=== PATIENT | female | born 1970 | race Caucasian/White ===

== ENCOUNTER → 2023-08-28 12:30 | Outpatient (REF) | payer BC, SELFPAY | LOC: WDC 12:30 | PROVIDERS: ATTENDING PHYSICIAN Obstetrics & Gynecology; FAMILY PHYSICIAN Family Medicine | DX: Z12.31 Encounter for screening mammogram for malignant neoplasm of breast (principal) | CPT/HCPCS: 77063; 77067 ==

== ENCOUNTER → 2024-03-15 10:48 | Outpatient (REF) | payer BC, SELFPAY | LOC: HWRAD 10:48 | PROVIDERS: ATTENDING PHYSICIAN Family Medicine | DX: R74.8 Abnormal levels of other serum enzymes (principal) | CPT/HCPCS: 76700 ==

== ENCOUNTER → 2024-09-18 11:37 | Outpatient (REF) | payer BC, SELFPAY | LOC: WDC 11:37 | PROVIDERS: ATTENDING PHYSICIAN Obstetrics & Gynecology; FAMILY PHYSICIAN Family Medicine | DX: Z12.31 Encounter for screening mammogram for malignant neoplasm of breast (principal) | CPT/HCPCS: 77063; 77067 ==

== ENCOUNTER 2024-10-02 09:36 | Emergency (ER) | payer BC, SELFPAY ==
[2024-10-02 09:37] VITALS: BP 141/92
[2024-10-02 10:06] LABS: % Basophils 0.7 % (0-2); % Eosinophils 1.4 % (0-6); % Immature Granulocytes 0.1 % (0-0.5); % Lymphocytes 16.5 % (20.5-51.1); % Monocytes 7.8 % (1.7-9.3); % Neutrophils 73.5 % (42.2-75.2); Absolute Basophils 0.1 10^3/uL (0-0.2); Absolute Eosinophils 0.1 10^3/uL (0-0.7); Absolute Lymphocytes 1.2 10^3/uL (1.2-3.4); Absolute Monocytes 0.6 10^3/uL (0.1-0.6); Absolute Neutrophils 5.3 10^3/uL (1.4-6.5); Hematocrit 42.9 % (37.0-47.0); Hemoglobin 13.7 g/dL (12.0-16.0); Mean Corp Hgb Conc. 31.9 g/dL (33.0-37.0); Mean Corpuscular Volume 87.6 fL (81.0-99.0); Mean Platelet Volume 10.5 fL (7.4-10.4); Nucleated Red Blood Cells % 0 %; Platelet Count 224 10^3/uL (130-400); White Blood Cell Count 7.2 10^3/uL (4.8-10.8)
[2024-10-02 10:21] LABS: PT 28.6 Sec (11.4-14.6)
[2024-10-02 10:22] LABS: ALT (SGPT) 42 U/L (0-35); AST (SGOT) 44 U/L (14-36); Albumin 4.1 g/dl (3.5-5.0); Alkaline Phosphatase 150 U/L (38-126); Blood Urea Nitrogen 10 mg/dl (7-17); Calcium 9.4 mg/dl (8.4-10.2); Carbon Dioxide 32 mmol/L (22-30); Chloride 103 mmol/L (98-107); Glucose 115 mg/dl (70-99); Potassium 4.8 mmol/L (3.5-5.1); Sodium 142 mmol/L (135-145); Total Bilirubin 0.8 mg/dl (0.2-1.3); eGFR > 60.00
[2024-10-02 10:32] LABS: NT-proBNP 412 pg/ml; Troponin I < 0.012 ng/ml
[2024-10-02 11:12] VITALS: BP 140/99
--- NOTE | 2024-10-02 11:27 | ED.GENMED ---
History of Present Illness
General
Chief Complaint: Cardiac Symptoms
Time Seen by Provider: 10/02/24 11:27
History of Present Illness
History of Present Illness:
TIME OF INITIAL ENCOUNTER:
HPI: Recently, the patient's pressure tank operator at [facility] wanted her to decrease her spironolactone dosing from 50 mg 3 times a day to once a day. She then developed swelling and shortness of breath. She decided to go back on 3 times per day dosing.
The patient had mitral valve replacement with mechanical valve nearly 20 years ago at [facility]. She was also here for Tikosyn loading but is no longer on Tikosyn.
EXAM:
GENERAL: Well appearing in no distress
HEENT: Moist oral mucosa
CARDIOVASCULAR: No murmurs, normal heart rate, regular rhythm, No chest wall tenderness, subtle click heard
PULMONARY: No respiratory distress, breath sounds are clear and equal
ABDOMEN: Soft with no peritoneal signs, no tenderness
NEUROLOGIC: Excellent strength all extremities, no coordination deficits
PSYCHIATRIC: Appropriate mental status, normal insight and judgement
EXTREMITIES: Nontender, no edema, moves all extremities equally
SKIN: No rash, no lesions
BACK: Surgical scar noted in the midline
NUMBER AND COMPLEXITY OF PROBLEMS ADDRESSED AT THE ENCOUNTER
� Chronic conditions affecting care: Mitral valve disease, paroxysmal A-fib/flutter
� Acute Exacerbation and/or Progression of Chronic Illness: This is an acute problem
� Differential Diagnosis includes: Valvular disease, CHF, medication change
AMOUNT AND/OR COMPLEXITY OF DATA TO BE REVIEWED AND ANALYZED
� I performed an independent evaluation of and my interpretation is:
EKG: Sinus 64, normal axis, no acute ST abnormality
CT:
X-rays: Chest x-ray shows no evidence of heart failure
Laboratory Studies: CBC normal, INR 2.7 troponin less than 0.012, BNP 412 with no old to compare
Other:
� Review of other/old records: The patient had a Holter monitor August 2015 that showed rate controlled atrial flutter
� Clinical information was obtained by an independent historian: None needed
� Prescriptions/Medications Considered but not given:
� Further testing considered but not performed:
RISK OF COMPLICATIONS AND/OR MORBIDITY OR MORTALITY OF PATIENT MANAGEMENT
� Social determinants of health affecting care: Lives at home
� Discussion with other providers: Notified Dr. ERNESTO Ruiz
� Escalation of care including admission/observation vs risk of discharge considered: Dr. Ruiz agrees with obtaining echo today. The patient is well-appearing with sats of 100% on room air. She does not appear to be in any
distress. She will go back on her usual spironolactone dosing of 50 mg 3 times daily. Echo being obtained today and she is to follow-up with her doctors at [facility].
ANY OTHER UPDATES:
Echo being obtained however the fire alarm technician wishes to have IV placed for further evaluation. The patient feels that she needs something stronger than spironolactone�will give an IV dose of Lasix while here. Awaiting echo completion and results from
cardiology. However I feel she can be discharged assuming normal echo and follow-up with [facility] cardiology.
Past History
Past History
ED Past Medical History: Valvular disease and Other (Scoliosis, Pulmonary restriction due to her Scoliosis)
ED Past Surgical History: Orthopedic (Scoliosis) and Other (Machanical heart valve, pacemaker.)
Social History
Tobacco: Non-smoker
Alcohol: None
Personal:
Living: with family
Employment: Employed
Family History
Family History: Other (Not relative)
Phy Exam
Physical Exam
Physical Exam:
See HPI
Course
Orders/Labs/Results
Orders:
Orders
10/02/24
DH LUMASON 5mL Routine
10/02/24 09:40
Electrocardiogram (*1) Urgent
Reason for Study: Shortness of Breath
EKG- Treatment ONCE
10/02/24 09:55
Complete Blood Count/With Diff Urgent
Comprehensive Metabolic Panel Urgent
Digoxin Urgent
Date and Time of Last Dose: ADD
NT-proBNP Urgent
Troponin I Urgent
10/02/24 09:59
PT/INR [Prothrombin Time] Urgent
10/02/24 11:37
CR Chest - 2 Views Urgent
Comment:
Reason For Exam: sob
10/02/24 11:51
Echo 2D MMode Color/Doppler Urgent
Reason for Study: weight gain, sob, mitral valve repair
Cardiology Consult: Everette Ruiz
10/02/24 11:57
Add On- LAB Urgent
Tests Added?: digoxin
10/02/24 14:03
Furosemide [Lasix] 40 mg IV NOW STA
Abnormal Lab Results
10/02/24 10/02/24
09:55 09:59
MCHC 31.9 L g/dL
(33.0-37.0)
RDW 15.0 H %
(11.5-14.5)
MPV 10.5 H fL
(7.4-10.4)
Lymphocytes % 16.5 L %
(20.5-51.1)
PT 28.6 H Sec
(11.4-14.6)
Carbon Dioxide 32 H mmol/L
(22-30)
Glucose 115 H mg/dl
(70-99)
AST 44 H U/L
(14-36)
ALT 42 H U/L
(0-35)
Alkaline Phosphatase 150 H U/L
(38-126)
Digoxin < 0.4 L ng/ml
(0.8-2.0)
10/02/24 09:55
10/02/24 09:55
Vital Signs
Initial and Last Documented VS:
Initial Vital Signs
Temp Pulse Resp BP Pulse Ox
36.5 C 87 16 141/92 100
10/02/24 09:37 10/02/24 09:37 10/02/24 09:37 10/02/24 09:37 10/02/24 09:37
Last Documented Vital Signs
Temp Pulse Resp BP Pulse Ox
36.5 C 62 22 116/76 97
10/02/24 09:37 10/02/24 15:42 10/02/24 15:42 10/02/24 15:42 10/02/24 15:30
*Critical Care Note
Total Time (30-74mins, 75-104mins- exclusive of procedures): Not Applicable
ED Attending Note
-
Portions of this chart may have been created with voice recognition software.� Occasional wrong word or��sound alike� substitutions may have occurred due to the inherent limitations of voice recognition software.
Discharge Plan
Departure
Patient Disposition: Home (Routine Discharge)
Date of Disposition: 10/02/24
Time of Disposition: 15:37
Patient with high blood pressure during this ER visit?: Yes
Discharge Problem:
Edema
Instructions: Swelling, BLOOD PRESSURE
Prescriptions:
No Action
aspirin [Lo-Dose Aspirin] 81 MG tablet,delayed release (DR/EC)
81 mg PO DAILY
levothyroxine 75 MCG tablet
75 mcg PO DAILY
spironolactone [Aldactone] 100 MG tablet
50 mg PO TID
digoxin [Digox] 125 MCG tablet
125 mcg PO DAILY
dofetilide 250 MCG capsule
250 mcg PO ONCE Qty: 60 11RF
Rx Instructions:
Increase Tikosyn to 250 mcg (two 125 mcg capsules or one 250 mcg capsule) every 12 hours
warfarin 2.5 MG tablet
2.5 mg PO MOWEFR Qty: 45 0RF
warfarin [Jantoven] 5 MG tablet
5 mg PO SUTUTHSA Qty: 45 0RF
Patient Comments:
Takes Coumadin 5 mg SUTUTHSAand 2.5 mg MWF
prednisone 20 mg tablet
60 mg PO DAILY 7 Days Qty: 21 0RF
Referrals:
Kendy Turk MD [Family Provider] -
Janes Ambrosio MD [Active] - Follow up in 2-3 days
Activity Restrictions/Additional Instructions:
BNP is 412 (not significantly elevated with respect to congestive heart failure), troponin less than 0.012, other basic blood work unremarkable, INR is 2.7. I discussed your case with Dr. Ambrosio's associate, Dr. ERNESTO Ruiz and we have obtained echo
today. I also recommend that you resume your spironolactone 50 mg dosing 3 times a day and follow-up with your pressure tank operator at [facility].
Interventions
Interventions:
*Risk Screen - Suicide Last Done: 10/02/24 09:40
*General Assessment Last Done: 10/02/24 12:12
*Neglect/Abuse Screening Last Done: 10/02/24 09:40
*ED- Fall Risk Assessment Last Done: 10/02/24 12:12
*ED COVID-19 Vaccine History Last Done: 10/02/24 12:12
*Nursing Disposition Last Done: 10/02/24 16:17
ED- Pulmonary Assessment Last Done: 10/02/24 13:00
ED- Cardiac Assessment Last Done: 10/02/24 12:12
Discharge Date and Time
Discharge Date/Time: 10/02/24 16:21
Print Language: BELIZEAN
[2024-10-02 12:09] VITALS: BMI 24.2
[2024-10-02 12:11] VITALS: BP 115/73
[2024-10-02 13:00] VITALS: BP 106/67
[2024-10-02 13:29] LABS: Digoxin < 0.4 ng/ml (0.8-2.0)
--- NOTE | 2024-10-02 14:19 | CARDSERVLU ---
Echocardiogram with Lumason completed after protocol screening completed. Allergies verified.
Patent IV site: left FA____
IV site flushed with 0.9% NaCl pre and post administration.
Diluted bolus method utilized to enhance visualization of ventricular boggs.
Total volume given: __3.0_ mL
Patient tolerated all procedures well without complications.
[2024-10-02 14:24] VITALS: BP 106/74
[2024-10-02] MEDS: LASIX 40 MG IV (14:27)
[2024-10-02 15:42] VITALS: BP 116/76
== END 2024-10-02 16:21 | disposition home or self-care (01) ==
LOC: EMR 09:36
PROVIDERS: EMERGENCY PHYSICIAN Emergency Medicine; FAMILY PHYSICIAN Family Medicine
DX: R60.9 Edema, unspecified (principal); I38 Endocarditis, valve unspecified; M41.9 Scoliosis, unspecified; Z79.899 Other long term (current) drug therapy; Z95.0 Presence of cardiac pacemaker; Z95.2 Presence of prosthetic heart valve
CPT/HCPCS: 99283; 96374; 71046; 80053; 80162; 83880; 84484; 85025; 85610; 93005; 93306; Q9950